=== PATIENT | female | born 1995 | race Two or more races ===

== ENCOUNTER 2023-11-23 14:45 | Inpatient (IN) | payer OTHER ==
[~2023-11-23] VITALS: Ht 160 cm; Wt 81.2 kg
[2023-12-02] MEDS ORDERED: PRENATAL TABLE1 EAC1 (18:36)
[2023-12-03] MEDS ORDERED: PEPCID AC20 MG PO (01:32)
[2023-12-03] MEDS ORDERED: INTESTINEX680 M1 PO (01:32)
[2023-12-09] MEDS ORDERED: RINGERS SOLUTION,LACTATED 1,000 ML IV SCH (16:15)
[2023-12-09 16:54] LABS: HEMATOCRIT 34.5 % (36.0-45.00); HEMOGLOBIN 11.6 g/dL (12.0-15.00); MEAN CELL VOLUME 84.2 fL (80.00-100.00); MEAN CORPUSCULAR HEMOGLOBIN 28.3 pg (27.00-32.0); MEAN CORPUSCULAR HGB CONC 33.6 g/dl (32.0-36.0); PLATELET COUNT 310 K/uL (150-450); RED CELL DISTRIBUTION WIDTH 14.1 % (11.5-14.5)
[2023-12-09] MEDS ORDERED: OXYTOCIN 20 UNITS/500ML RL PIGGYBAG IV ONE (17:08)
[2023-12-09] MEDS ORDERED: OXYTOCIN 20 UNITS/500ML RL PIGGYBAG IV SCH (17:15)
[2023-12-09 17:24] LABS: ALBUMIN 2.7 gm/dL (3.4-5.0); BILIRUBIN TOTAL 0.58 mg/dL (0.3-1.2); CREATININE SERUM 0.46 mg/dL (0.55-1.02); GFR 161.75; GLOBULINA 3.2 G/DL (2.4-3.5); PARTIAL THROMBOPLASTIN TIME 33.2 SECONDS (22.0-34.0); POTASSIUM 3.97 mEq/L (3.5-5.1); PROTHROMBIN TIME 10.9 SECONDS (9.0-11.5); TOTAL PROTEIN 5.9 gm/dL (6.4-8.2)
[2023-12-09] MEDS ORDERED: CEFOXITIN SODIUM 2,000 MG VIAL IV ONE (20:52)
[2023-12-09] MEDS ORDERED: CITRIC ACID/SODIUM CITRATE 30 ML BLIST.PACK PO ONE (20:53)
[2023-12-09] MEDS ORDERED: CEFOXITIN SODIUM 2,000 MG VIAL IV STA (20:55)
[2023-12-09] MEDS ORDERED: CITRIC ACID/SODIUM CITRATE 30 ML BLIST.PACK PO STA (20:55)
[2023-12-09] MEDS ORDERED: OXYTOCIN 10 UNITS/ML VIAL ONE ×2 (20:56→23:39)
[2023-12-09 22:34] LABS: ABG PH 7.303 (7.35-7.45); ABG pCO2 55.3 mmHg (35-45); BASE EXCESS -0.6 mmol/l; BICARBONATE 26.8 mmol/l (23-25); SaO2 17.8 %; Tco2 28.5 mmol/l
[2023-12-09] MEDS ORDERED: ERYTHROMYCIN BASE 1 GM TUBE OP ONE (22:45)
[2023-12-09] MEDS ORDERED: OXYTOCIN 10 UNITS/ML VIAL IV ONE (22:45)
[2023-12-09 23:12] LABS: ABG PO2 16.2 mmHg (80-100)
[2023-12-09 23:13] LABS: o2 21 %; puncture site UMBILICAL
[2023-12-09] MEDS ORDERED: KETOROLAC TROMETHAMINE 30 MG VIAL IM ONE (23:30)
[2023-12-09] MEDS ORDERED: MEPERIDINE HCL/PF 25 MG/ML VIAL IM PRN (23:30)
[2023-12-09] MEDS ORDERED: PROMETHAZINE HCL 25 MG/ML AMPUL IM PRN (23:30)
[2023-12-09] MEDS ORDERED: OXYTOCIN 20 UNITS/1000ML RL PIGGYBAG IV ONE (23:30)
[2023-12-09] MEDS ORDERED: CEFAZOLIN SODIUM 1,000 MG VIAL ONE (23:46)
[2023-12-10] MEDS ORDERED: KETOROLAC TROMETHAMINE 10 MG TABLET PO SCH
[2023-12-10] MEDS ORDERED: CEFAZOLIN SODIUM 1,000 MG VIAL IV SCH (01:00)
[2023-12-10] MEDS ORDERED: SIMETHICONE 125 MG CAPSULE PO SCH (01:00)
[2023-12-10 03:09] LABS: HEMATOCRIT 32.3 % (36.0-45.00); HEMOGLOBIN 11.1 g/dL (12.0-15.00); MEAN CELL VOLUME 84.2 fL (80.00-100.00); MEAN CORPUSCULAR HEMOGLOBIN 28.9 pg (27.00-32.0); MEAN CORPUSCULAR HGB CONC 34.4 g/dl (32.0-36.0); PLATELET COUNT 323 K/uL (150-450); RED BLOOD COUNT 3.84 M/uL (4.00-6.00); RED CELL DISTRIBUTION WIDTH 13.9 % (11.5-14.5)
[2023-12-10 08:21] LABS: HEMATOCRIT 31.4 % (36.0-45.00); HEMOGLOBIN 10.8 g/dL (12.0-15.00); MEAN CELL VOLUME 83.8 fL (80.00-100.00); MEAN CORPUSCULAR HEMOGLOBIN 28.8 pg (27.00-32.0); MEAN CORPUSCULAR HGB CONC 34.3 g/dl (32.0-36.0); PLATELET COUNT 293 K/uL (150-450); RED BLOOD COUNT 3.75 M/uL (4.00-6.00); RED CELL DISTRIBUTION WIDTH 14.2 % (11.5-14.5)
[2023-12-12] MEDS ORDERED: KETO10TA2 PO (07:56)
[2023-12-12] MEDS ORDERED: PERCOCET 5-3251 EACH PO (07:57)
== END 2023-12-12 13:16 | disposition home or self-care (01) | DRG 788 ==
LOC: OB/GYN 12-09 16:09 → LDR 12-09 16:09 → OB/GYN 12-09 22:38
PROVIDERS: ADMIT Obstetrics & Gynecology Maternal & Fetal Medicine; ATTEND Obstetrics & Gynecology Maternal & Fetal Medicine
PROC: 4A1HXCZ Monitoring of Products of Conception, Cardiac Rate, External Approach (ICD-10-PCS; 2023-12-09)
PROC: 10D00Z1 Extraction of Products of Conception, Low, Open Approach (ICD-10-PCS; principal; 2023-12-09 20:00)
DX: O82 Encounter for cesarean delivery without indication (principal); O33.8 Maternal care for disproportion of other origin; Z3A.40 40 weeks gestation of pregnancy; Z37.0 Single live birth; Z20.822 Contact with and (suspected) exposure to COVID-19

== ENCOUNTER 2023-12-02 18:19 | Emergency (ER) | payer OTHER ==
[~2023-12-02] VITALS: Ht 160 cm; Wt 81.6 kg
[2023-12-02] MEDS ORDERED: PRENATAL TABLE1 EAC1 (18:36)
[2023-12-02 19:47] LABS: HEMATOCRIT 33.5 % (36.0-45.00); HEMOGLOBIN 11.4 g/dL (12.0-15.00); MEAN CORPUSCULAR HEMOGLOBIN 28.5 pg (27.00-32.0); MEAN CORPUSCULAR HGB CONC 33.9 g/dl (32.0-36.0); PLATELET COUNT 322 K/uL (150-450); RED BLOOD COUNT 3.99 M/uL (4.00-6.00); RED CELL DISTRIBUTION WIDTH 13.8 % (11.5-14.5)
[2023-12-02 20:26] LABS: ALBUMIN 2.7 gm/dL (3.4-5.0); BILIRUBIN TOTAL 0.34 mg/dL (0.3-1.2); CALCIUM 9.2 mg/dL (8.5-10.1); CREATININE SERUM 0.49 mg/dL (0.55-1.02); GFR 150.38; GLOBULINA 3.7 G/DL (2.4-3.5); POTASSIUM 3.59 mEq/L (3.5-5.1); TOTAL PROTEIN 6.4 gm/dL (6.4-8.2)
[2023-12-02 20:47] LABS: URINE APPEARANCE Clear; URINE BILIRRUBIN Negative (NEGATIVE); URINE BLOOD Negative; URINE COLOR Yellow; URINE GLUCOSE Negative (NEGATIVE); URINE KETONE Negative (NEGATIVE); URINE LEUKOCYTE Negative; URINE NITRATE Negative; URINE PROTEIN Negative (NEGATIVE); URINE UROBILINOGEN 0.2 E.U./dl
[2023-12-02 20:49] LABS: URINE EPITHELIAL CELLS 32.1 uL (0.0-38.8); URINE RBC 2.9 uL (0.0-20.8); URINE WBC 21.9 uL (0.0-23.2)
[2023-12-03] MEDS ORDERED: FAMOTIDINE/PF 20 MG in 0.9 % SODIUM CHLORIDE 8 ML IV PUSH STA (01:28)
[2023-12-03] MEDS ORDERED: LACTOBACILLUS ACIDOPHILUS 1 CAP CAP PO ONE ×2 (01:30→01:34)
[2023-12-03] MEDS ORDERED: INTESTINEX680 M1 PO (01:32)
[2023-12-03] MEDS ORDERED: PEPCID AC20 MG PO (01:32)
[2023-12-03] MEDS ORDERED: FAMOTIDINE/PF 20 MG/2 ML VIAL ONE (01:34)
== END 2023-12-03 01:44 | disposition home or self-care (01) ==
LOC: ER 18:20
PROVIDERS: General Practice
DX: O99.619 Diseases of the digestive system complicating pregnancy, unspecified trimester (principal); R19.7 Diarrhea, unspecified; K92.89 Other specified diseases of the digestive system; Z20.822 Contact with and (suspected) exposure to COVID-19

== ENCOUNTER 2023-12-05 09:45 | Outpatient (CLI) | payer OTHER ==
[~2023-12-05 09:45] MED LIST: INTESTINEX680 M1 PO; PEPCID AC20 MG PO; PRENATAL TABLE1 EAC1
== END 2023-12-05 10:35 | disposition home or self-care (01) ==
LOC: NST 09:45
PROVIDERS: ATTEND Obstetrics & Gynecology Gynecology
DX: Z34.83 Encounter for supervision of other normal pregnancy, third trimester (principal)